=== PATIENT | female | born 1970 | race Caucasian/White ===

== ENCOUNTER 2024-01-16 19:07 | Emergency (ER) | payer BC, SELFPAY ==
[2024-01-16 19:11] VITALS: BP 124/70; PULSE 78; TEMP 37.1; O2SAT 98; BMI 44.8
--- NOTE | 2024-01-16 19:21 | ED_ITS ---
HPI - URI/Sore Throat General Chief Complaint: Upper Respiratory Infection Stated Complaint: NASAL PAIN Time Seen by Provider: 01/16/24 19:17 Source: patient History of Present Illness HPI Narrative: presents complaining of sore throat , sinus pressure and burning nasal pain for past week. States she had COVID19 3 weeks ago and concern she may have it again. No definite fever but has been using tylenol OTC medication. no dizziness or nausea. Not short of breath. Related Data Allergies Allergy/AdvReac Type Severity Reaction Status Date / Time morphine Allergy Severe Anaphylaxis Verified 01/16/24 19:16 Sulfa (Sulfonamide Allergy Severe Hives Verified 01/16/24 19:16 Antibiotics) Review of Systems ROS Status of ROS 10 or more systems reviewed and unremark able except as noted in history and below Exam Constitutional Vital Signs, click to edit/add: Last Vital Signs Temp 98.7 F 01/16/24 19:11 Pulse 78 01/16/24 19:11 Resp 18 01/16/24 19:11 BP 124/70 01/16/24 19:11 Pulse Ox 98 01/16/24 19:11 O2 Del Method Room Air 01/16/24 19:11 Common normals: no apparent distress, average body habitus, oriented x3, no limitations, healthy appearing, alert and well nourished [facility] Common normals: normocephalic and head/scalp atraumatic Other: pharynx erythematous . bilat maxillary sinus tenderness Eye Common normals: EOMs intact bilaterally and conjunctivae normal Respiratory Common normals: normal respiratory effort, no retractions, no use of accessory muscles and clear to auscultation bilaterally Cardio Common normals: regular rate, regular rhythm, S1 normal heart sound and S2 normal heart sound GI Common normals: Normal to inspection, nondistended, normoactive bowel sounds present, soft to palpation and non-tender Extremity Common normals: normal to inspection and full ROM Neuro Common normals: oriented x3, CN's II-XII intact bilaterally, moves all extremities and no focal motor deficits Psych Appearance: grossly normal Course Vital Signs Vital signs: Vital Signs Temperature 98.7 F 01/16/24 19:11 Pulse Rate 78 01/16/24 19:11 Respiratory Rate 18 01/16/24 19:11 Blood Pressure 124/70 01/16/24 19:11 Pulse Oximetry 98 01/16/24 19:11 Oxygen Delivery Method Room Air 01/16/24 19:11 Temperature 98.7 F 01/16/24 19:11 Pulse Rate 78 01/16/24 19:11 Respiratory Rate 18 01/16/24 19:11 Blood Pressure 124/70 01/16/24 19:11 Pulse Oximetry 98 01/16/24 19:11 Oxygen Delivery Method Room Air 01/16/24 19:11 MDM - URI/Sore Throat MDM Narrative Medical decision making narrative: presents with URI symptoms of sore throat, sinus pressure. concern she may have COVID 19 again. States she had it 3 weeks ago. Not short of breath. Exam with sinus tenderness and pharyngeal erythema. COVID 19 and influenza swab sent to lab. influenza and COVID19 neg. Patient informed of working diagnosis of pharyngitis and sinusitis. Given first dose of Augmentin in the department and discharged home with a prescription for Augmentin Lab Data Labs: Lab Results 01/16/24 Range/Units 19:15 Influenza Type A Ag Negative Influenza Type B Ag Negative RSV Antigen Not detected (NOT DETECTE) SARS-CoV-2 Ag (CV2AG) Negative (NEGATIVE) Discharge Plan Discharge Chief Complaint: Upper Respiratory Infection Clinical Impression: Pharyngitis, Sinusitis Patient Disposition: Home, Self-Care Print Language: [place] Instructions: Pharyngitis (ED), Sinusitis (ED) Additional Instructions: follow up with your doctor next week or with Dr Muñiz Referrals: Physician,Non-Staff, [Primary Care Provider] - 1 week
[2024-01-16 19:39] LABS: Influenza Virus A Antigen Negative; Influenza Virus B Antigen Negative; Internal Control Within Normal Limits; Respiratory Syncytial Virus Not Detected (NOT DETECTE); SARS-CoV-2 Ag NEGATIVE (NEGATIVE)
[2024-01-16] MEDS: AMOXICILLIN/POT CLAV 875-125 MG TABLET 1 TAB PO (20:28)
== END 2024-01-16 20:31 | disposition home or self-care (01) ==
PROVIDERS: Emergency Provider Internal Medicine
DX: J02.9 Acute pharyngitis, unspecified (principal); J32.9 Chronic sinusitis, unspecified; Z20.822 Contact with and (suspected) exposure to COVID-19
CPT/HCPCS: 87420; 87804; 87811; 99284